=== PATIENT | male | born 1955 | race Caucasian/White ===

== ENCOUNTER 2018-03-07 21:32 | Emergency (ER) | payer MEDICAID ==
[~2018-03-07] VITALS: Ht 175.3 cm; Wt 120.0 kg
[~2018-03-07 21:32] MED LIST: HCTZ; LISI-604 PO; NIAC1CAP PO; ZES10T PO
[2018-03-07] MEDS ORDERED: CLIN-100 PO (23:44)
[2018-03-07] MEDS ORDERED: ANBESOL TP (23:44)
[2018-03-07] MEDS ORDERED: TRAM50TA2 PO (23:44)
[2018-03-07] MEDS ORDERED: IBUP-1986 PO (23:44)
[2018-03-08] MEDS ORDERED: ibuprofen tablet 400 MG TABLET PO ONE (00:15)
[2018-03-08 00:25] VITALS: BP 161/100
== END 2018-03-08 00:12 | disposition home or self-care (01) ==
LOC: ER 21:33
DX: K04.7 Periapical abscess without sinus (principal); K05.10 Chronic gingivitis, plaque induced; F15.10 Other stimulant abuse, uncomplicated; I10 Essential (primary) hypertension; Z79.899 Other long term (current) drug therapy
CPT/HCPCS: 99283

== ENCOUNTER 2022-08-16 18:32 | Emergency (ER) | payer BC, MEDICAID ==
[~2022-08-16] VITALS: Ht 177.8 cm; Wt 127.3 kg
[~2022-08-16 18:32] MED LIST changes: +IBUP-1986 PO; -LISI-604 PO; +LISI5TAB22 PO
[2022-08-16 18:53] VITALS: BP 174/95
[2022-08-16] MEDS ORDERED: HYDROcodone/acetaminophen 5mg/325mg tablet PO ONE (21:45)
[2022-08-16] MEDS ORDERED: clindamycin 150mg capsule PO ONE (21:45)
[2022-08-16] MEDS ORDERED: CLIN150C8 PO (21:52)
[2022-08-16] MEDS ORDERED: HYDR-3965 PO (21:52)
== END 2022-08-16 22:09 | disposition home or self-care (01) ==
LOC: ER 18:33
DX: K04.7 Periapical abscess without sinus (principal); K08.89 Other specified disorders of teeth and supporting structures; I10 Essential (primary) hypertension; F15.90 Other stimulant use, unspecified, uncomplicated; Z98.890 Other specified postprocedural states; Z88.0 Allergy status to penicillin; Z79.2 Long term (current) use of antibiotics; Z79.899 Other long term (current) drug therapy
CPT/HCPCS: 99283

== ENCOUNTER 2022-08-17 16:47 | Emergency (ER) | payer BC, MEDICAID ==
[~2022-08-17] VITALS: Ht 177.8 cm; Wt 127.3 kg
[~2022-08-17 16:47] MED LIST changes: +CLIN150C8 PO; +HYDR-3965 PO
[2022-08-17 17:02] VITALS: BP 183/118
== END 2022-08-17 19:14 | disposition left against medical advice (07) ==
LOC: ER 16:48
DX: Z76.0 Encounter for issue of repeat prescription (principal); Z53.21 Procedure and treatment not carried out due to patient leaving prior to being seen by health care provider

== ENCOUNTER 2023-06-24 15:18 | Emergency (ER) | payer BC, MEDICAID ==
[~2023-06-24] VITALS: Ht 177.8 cm; Wt 121.0 kg
[~2023-06-24 15:18] MED LIST changes: +CLIN-214 PO; -CLIN150C8 PO; -HYDR-3965 PO
[2023-06-24 15:35] VITALS: BP_DIAS 95
[2023-06-24] MEDS ORDERED: CLINDAmcin 900mg/NS 50ml IVPB 50 ML IV ONE (16:35)
[2023-06-24] MEDS ORDERED: clindamycin-Cleocin 900mg/D5W 50 ML IV ONE (16:39)
[2023-06-24] MEDS ORDERED: iohexol 300mg/ml 100ml inj. ONE (17:14)
[2023-06-24 17:53] VITALS: BP_SYST 160; PULSE 65; RESP 18; TEMP 98.7; O2SAT 96
[2023-06-24 17:58] LABS: BASOPHILS # (AUTO) 0.1 X10'3 (0-0.2); BASOPHILS % (AUTO) 0.9 % (0-1); EOSINOPHILS # (AUTO) 0.5 X10'3 (0-0.9); EOSINOPHILS % (AUTO) 5.9 % (0-6); HEMATOCRIT 46.9 % (42.0-52.0); HEMOGLOBIN 15.5 g/dl (14.0-17.9); LYMPHOCYTES # (AUTO) 2.1 X10'3 (1.1-4.8); LYMPHOCYTES % (AUTO) 23.2 % (21-51); MEAN CORPUSCULAR HEMOGLOBIN 28.8 PG (27.0-31.0); MEAN CORPUSCULAR VOLUME 87.1 FL (78-98); MEAN PLATELET VOLUME 8.1 FL (7.4-10.4); MONOCYTES # (AUTO) 1.2 X10'3 (0-0.9); MONOCYTES % (AUTO) 13.4 % (2-12); NEUTROPHILS # (AUTO) 5.1 X10'3 (1.8-7.7); NEUTROPHILS % (AUTO) 56.6 % (42-75); PLATELET COUNT 223 X10'3 (140-440); RED BLOOD COUNT 5.38 X10'6 (4.70-6.10); RED CELL DISTRIBUTION WIDTH 15.8 % (11.5-14.5); WHITE BLOOD COUNT 8.9 X10'3 (4.5-11.0)
[2023-06-24 18:13] LABS: ALANINE AMINOTRANSFERASE 34 U/L (12-78); ALBUMIN 3.5 G/DL (3.4-5.0); ALBUMIN/GLOBULIN RATIO 0.8 (1.1-1.5); ALKALINE PHOSPHATASE 72 IU/L (46-116); ANION GAP 6 (8-16); ASPARTATE AMINO TRANSFERASE 25 U/L (10-37); BILIRUBIN,TOTAL 1.1 MG/DL (0.1-1.0); BLOOD UREA NITROGEN 17 MG/DL (7-18); BUN/CREATININE RATIO 13.9 (10.0-20.0); CALCIUM 9.9 MG/DL (8.5-10.1); CHLORIDE 104 MMOL/L (99-107); CREATININE 1.22 MG/DL (0.60-1.10); GLUCOSE 126 MG/DL (70-104); LIPASE 107 U/L (73-393); POTASSIUM 3.7 MMOL/L (3.5-5.1); SODIUM 139 MMOL/L (135-145); TOTAL CARBON DIOXIDE 29.5 MMOL/L (24-32); TOTAL PROTEIN 7.7 G/DL (6.4-8.2); eCRCL 62 ML/MIN; eGFR 60 ML/MIN
[2023-06-24] MEDS ORDERED: OXYC-145 PO (19:52)
[2023-06-24] MEDS ORDERED: CLIN150C2 PO (19:52)
== END 2023-06-24 20:09 | disposition home or self-care (01) ==
LOC: ER 15:19
DX: K04.7 Periapical abscess without sinus (principal); K08.89 Other specified disorders of teeth and supporting structures; I10 Essential (primary) hypertension; F15.90 Other stimulant use, unspecified, uncomplicated; Z88.0 Allergy status to penicillin; Z79.2 Long term (current) use of antibiotics; Z79.1 Long term (current) use of non-steroidal anti-inflammatories (NSAID)
CPT/HCPCS: 36415; 70491; 80053; 83690; 85025; 96365; 99285; J3490; Q9967

== ENCOUNTER 2023-08-17 17:28 | Emergency (ER) | payer BC, MEDICAID ==
[~2023-08-17] VITALS: Ht 177.8 cm; Wt 127.3 kg
[~2023-08-17 17:28] MED LIST changes: +MOUT1KIT2; +OXYC-145 PO
[2023-08-17 17:30] VITALS: BP 175/102; PULSE 75; RESP 20; TEMP 97.9; O2SAT 97
[2023-08-17] MEDS ORDERED: CLIN-97 PO (19:29)
== END 2023-08-17 19:41 | disposition home or self-care (01) ==
LOC: ER 17:29
DX: K08.89 Other specified disorders of teeth and supporting structures (principal); I10 Essential (primary) hypertension; F15.90 Other stimulant use, unspecified, uncomplicated; Z98.890 Other specified postprocedural states; Z88.0 Allergy status to penicillin; Z88.8 Allergy status to other drugs, medicaments and biological substances; Z79.2 Long term (current) use of antibiotics; Z79.899 Other long term (current) drug therapy
CPT/HCPCS: 99283

== ENCOUNTER 2025-01-17 22:24 | Inpatient (IN) | payer BC, MEDICAID ==
[~2025-01-17] VITALS: Ht 177.8 cm; Wt 134.7 kg
[~2025-01-17 22:24] MED LIST changes: +CLIN-97 PO
[2025-01-18] VITALS (30 sets, daily range): BP systolic 105–177; BP diastolic 72–117; PULSE 73–157; RESP 16–22; TEMP 97.3–98.2; O2SAT 94–97
[2025-01-18 01:17] LABS: BASOPHILS # (AUTO) 0.1 X10'3 (0-0.2); BASOPHILS % (AUTO) 0.9 % (0-1); EOSINOPHILS # (AUTO) 0.5 X10'3 (0-0.9); EOSINOPHILS % (AUTO) 4.9 % (0-6); HEMATOCRIT 36.6 % (42.0-52.0); HEMOGLOBIN 11.8 g/dl (14.0-17.9); LYMPHOCYTES # (AUTO) 2.5 X10'3 (1.1-4.8); LYMPHOCYTES % (AUTO) 26.4 % (21-51); MEAN CORPUSCULAR HEMOGLOBIN 26.5 PG (27.0-31.0); MEAN CORPUSCULAR HGB CONC 32.3 g/dL (33.0-36.5); MEAN PLATELET VOLUME 8.1 FL (7.4-10.4); MONOCYTES # (AUTO) 1.1 X10'3 (0-0.9); MONOCYTES % (AUTO) 11.8 % (2-12); NEUTROPHILS # (AUTO) 5.3 X10'3 (1.8-7.7); PLATELET COUNT 251 X10'3 (140-440); RED BLOOD COUNT 4.46 X10'6 (4.70-6.10); RED CELL DISTRIBUTION WIDTH 16.4 % (11.5-14.5); WHITE BLOOD COUNT 9.4 X10'3 (4.5-11.0)
[2025-01-18 01:31] LABS: INR 1.3 INR
[2025-01-18 01:32] LABS: ALANINE AMINOTRANSFERASE 38 U/L (12-78); ALBUMIN 3.2 G/DL (3.4-5.0); ALBUMIN/GLOBULIN RATIO 0.9 (1.1-1.5); ALKALINE PHOSPHATASE 85 IU/L (46-116); ANION GAP 7 (8-16); APTT 29 SECONDS (22-32); ASPARTATE AMINO TRANSFERASE 33 U/L (10-37); BILIRUBIN,TOTAL 2.1 MG/DL (0.1-1.0); BLOOD UREA NITROGEN 13 MG/DL (7-18); BUN/CREATININE RATIO 11.2 (10.0-20.0); CALCIUM 8.6 MG/DL (8.5-10.1); CHLORIDE 105 MMOL/L (99-107); CREATININE 1.16 MG/DL (0.60-1.10); GLUCOSE 114 MG/DL (70-104); POTASSIUM 3.4 MMOL/L (3.5-5.1); PROTHROMBIN TIME 13.7 SECONDS (9.0-12.0); SODIUM 142 MMOL/L (135-145); TOTAL CARBON DIOXIDE 29.9 MMOL/L (24-32); TOTAL PROTEIN 6.9 G/DL (6.4-8.2); eCRCL 64 ML/MIN; eGFR 63 ML/MIN
[2025-01-18 01:41] LABS: BILIRUBIN,DIRECT 0.5 MG/DL (0-0.3); ETHANOL < 10 MG/DL (<10); MAGNESIUM 2.1 MG/DL (1.5-2.4); PRO BRAIN NATRIURETIC PEPTIDE 2217 PG/ML (0-125)
[2025-01-18 01:42] LABS: BILIRUBIN,URINE NEGATIVE (Neg); CLARITY,URINE CLEAR (Clear); COLOR,URINE YELLOW (Yellow); GLUCOSE, URINE NEGATIVE (Neg); KETONES,URINE NEGATIVE (Neg); LEUKOCYTE ESTERASE ,URINE NEGATIVE (Neg); NITRITES, URINE NEGATIVE (Neg); OCCULT BLOOD,URINE NEGATIVE (Neg); PROTEIN,URINE >=300 mg/dl (Neg)
[2025-01-18 01:51] LABS: UA COLLECTION TYPE CLN CATCH MIDSTREAM
[2025-01-18 01:52] LABS: BACTERIA,URINE 1+ /HPF (Neg); MUCUS STRANDS MODERATE /LPF (Neg); RBC,URINE NONE SEEN /HPF (0-2); SQUAMOUS EPITHELIAL CELL,UR FEW /LPF (FEW); WBC,URINE 0-4 /HPF (0-4)
[2025-01-18] MEDS ORDERED: morphine 2 MG/ML inj. syringe IV PRN (01:55)
[2025-01-18] MEDS: aspirin 81mg tab.chew PO ONE (02:39)
[2025-01-18] MEDS: potassium Cl 20 mEq SR tablet PO ONE (02:40)
[2025-01-18] MEDS: enoxaparin 100mg/ml syringe SUBCUT ONE (02:40)
[2025-01-18] MEDS: D5-1/2NS w/20 mEq potassium per 1000ml IV ONE (02:41)
[2025-01-18] MEDS ORDERED: NO HOME MEDS (02:50)
[2025-01-18] MEDS: IOHEXOL 12MG/ML oral solution 1,000 ML BOTTLE-COMPOUND-RX PO ONE (03:07)
[2025-01-18 04:07] LABS: URINE AMPHETAMINE SCREEN POSITIVE (Neg); URINE BARBITUATE SCREEN NEGATIVE (Neg); URINE BENZODIAZEPINES SCREEN NEGATIVE (Neg); URINE CANNABINOID SCREEN NEGATIVE (Neg); URINE COCAINE SCREEN NEGATIVE (Neg); URINE METHADONE SCREEN NEGATIVE (Neg); URINE OPIATE SCREEN NEGATIVE (Neg); URINE PHENCYCLIDINE SCREEN NEGATIVE (Neg)
[2025-01-18] MEDS ORDERED: iohexol 300mg/ml 100ml inj. ONE (04:12)
[2025-01-18] MEDS ORDERED: magnesium sulf-water 4G/100mL 100 ML IV PRN (06:35)
[2025-01-18] MEDS ORDERED: potassium Cl 20 mEq SR tablet PO PRN (06:35)
[2025-01-18] MEDS ORDERED: magnesium sulf-water 2g/50mL 50 ML IV PRN (06:35)
[2025-01-18] MEDS ORDERED: magnesium Cl slow-release 64mg tablet PO PRN (06:35)
[2025-01-18] MEDS ORDERED: potassium Cl 40MEQ/1/2NS 520ml 520 ML IV PRN (06:35)
[2025-01-18] MEDS ORDERED: metoprolol tartrate 1mg/ml inj IV PRN (06:45)
[2025-01-18] MEDS ORDERED: nitroGLYCERIN 0.4mg SUBLingual tab SL PRN (06:45)
[2025-01-18] MEDS: K and/or MAG REPLACEMENT MC SCH (08:00)
[2025-01-18] MEDS: heparin, porcine 5000 units/ml vial SQ SCH (08:00)
[2025-01-18] MEDS: carVEDilol 3.125mg tablet PO SCH (08:00)
[2025-01-18] MEDS: aspirin 81mg tab.chew PO SCH (08:30)
[2025-01-18] MEDS: ipratropium/albuterol 3ml nebule NEB PRN (09:15)
[2025-01-18] MEDS: guaiFENesin ER 600mg tablet PO SCH (09:30)
[2025-01-18 11:27] LABS: THYROID STIMULATING HORMONE 1.31 ulU/ml (0.34-4.50)
[2025-01-18 11:38] LABS: HEMOGLOBIN A1C 6.5 % (4.5-6.2)
[2025-01-18] MEDS: regadenoson 0.4mg/5ml syringe IV PRN (12:12)
[2025-01-18] MEDS: aminophylline 500mg/20ml vial IV PRN (12:34)
[2025-01-18] MEDS: adenosine 3mg/ml 2ml vial IV ONE ×2 (12:40→17:12)
[2025-01-18] MEDS ORDERED: morphine 4 MG/ML inj SYRINge IV PRN (14:15)
[2025-01-18] MEDS: potassium Cl 20 mEq SR tablet PO PRN (15:57)
[2025-01-18] MEDS: metoprolol tartrate 1mg/ml inj IV ONE (16:50)
[2025-01-18] MEDS: carvedilol 6.25mg tablet PO SCH (16:56)
[2025-01-18 17:32] LABS: CHOL/HDL RATIO 3.7 (0.00-4.99); CHOLESTEROL 100 MG/DL (0-200); HDL CHOLESTEROL 27 MG/DL (35-60); LDL CHOLESTEROL 68 MG/DL (50-100); TRIGLYCERIDES 60 MG/DL (20-135)
[2025-01-18] MEDS: losartan 25mg tablet PO SCH (18:06)
[2025-01-18] MEDS: carVEDilol 12.5mg tablet PO ONE (20:27)
[2025-01-18] MEDS: atorvastatin 20mg tablet PO SCH (20:27)
[2025-01-18] MEDS: polyethylene glycol 3350 17gm powd pack PO SCH (20:28)
[2025-01-18] MEDS: nystatin 15 GM powder TP SCH (21:00)
[2025-01-18] MEDS: furosemide 20 MG/2 ML vial IV SCH (21:57)
[2025-01-18] MEDS: spironolactone 25 MG tablet PO SCH (22:09)
[2025-01-19] VITALS (10 sets, daily range): BP systolic 98–130; BP diastolic 58–87; PULSE 59–74; RESP 14–21; TEMP 97.1–97.9; O2SAT 94–100
[2025-01-19] MEDS ORDERED: guaiFENesin 200 MG/10 ML oral syrup UD cup PO PRN (02:50)
[2025-01-19] MEDS: carVEDilol 12.5mg tablet PO SCH (08:37)
[2025-01-19] MEDS: EMPAGLIFLOZIN 10 MG TABLET PO SCH (08:45)
[2025-01-19 09:33] LABS: BASOPHILS # (AUTO) 0.1 X10'3 (0-0.2); EOSINOPHILS # (AUTO) 0.6 X10'3 (0-0.9); EOSINOPHILS % (AUTO) 7.5 % (0-6); HEMATOCRIT 36.8 % (42.0-52.0); HEMOGLOBIN 11.6 g/dl (14.0-17.9); LYMPHOCYTES # (AUTO) 1.6 X10'3 (1.1-4.8); LYMPHOCYTES % (AUTO) 21.6 % (21-51); MEAN CORPUSCULAR HEMOGLOBIN 26.5 PG (27.0-31.0); MEAN CORPUSCULAR HGB CONC 31.6 g/dL (33.0-36.5); MEAN CORPUSCULAR VOLUME 83.9 FL (78-98); MEAN PLATELET VOLUME 8.5 FL (7.4-10.4); MONOCYTES # (AUTO) 0.7 X10'3 (0-0.9); MONOCYTES % (AUTO) 9.3 % (2-12); NEUTROPHILS # (AUTO) 4.5 X10'3 (1.8-7.7); NEUTROPHILS % (AUTO) 60.6 % (42-75); PLATELET COUNT 244 X10'3 (140-440); RED BLOOD COUNT 4.39 X10'6 (4.70-6.10); RED CELL DISTRIBUTION WIDTH 16.5 % (11.5-14.5); WHITE BLOOD COUNT 7.4 X10'3 (4.5-11.0)
[2025-01-19 09:45] LABS: APTT 29 SECONDS (22-32); INR 1.3 INR
[2025-01-19 09:55] LABS: PROTHROMBIN TIME 12.9 SECONDS (9.0-12.0)
[2025-01-19 10:09] LABS: ALANINE AMINOTRANSFERASE 30 U/L (12-78); ALBUMIN 2.9 G/DL (3.4-5.0); ALBUMIN/GLOBULIN RATIO 0.7 (1.1-1.5); ALKALINE PHOSPHATASE 79 IU/L (46-116); ANION GAP 7 (8-16); ASPARTATE AMINO TRANSFERASE 28 U/L (10-37); BILIRUBIN,TOTAL 2.2 MG/DL (0.1-1.0); BLOOD UREA NITROGEN 14 MG/DL (7-18); BUN/CREATININE RATIO 12.5 (10.0-20.0); CALCIUM 8.8 MG/DL (8.5-10.1); CHLORIDE 106 MMOL/L (99-107); CHOL/HDL RATIO 3.5 (0.00-4.99); CHOLESTEROL 98 MG/DL (0-200); CREATININE 1.12 MG/DL (0.60-1.10); GLUCOSE 174 MG/DL (70-104); HDL CHOLESTEROL 28 MG/DL (35-60); LDL CHOLESTEROL 67 MG/DL (50-100); PHOSPHORUS 2.8 MG/DL (2.3-4.5); SODIUM 140 MMOL/L (135-145); TOTAL CARBON DIOXIDE 26.6 MMOL/L (24-32); TOTAL PROTEIN 7.2 G/DL (6.4-8.2); TRIGLYCERIDES 74 MG/DL (20-135); eCRCL 66 ML/MIN; eGFR 65 ML/MIN
[2025-01-19] MEDS: apixaban 5mg tablet PO SCH (12:33)
[2025-01-20 02:00] VITALS: BP 112/66; PULSE 71; RESP 17; TEMP 97.3; O2SAT 97
[2025-01-20 06:53] LABS: BASOPHILS # (AUTO) 0.1 X10'3 (0-0.2); BASOPHILS % (AUTO) 1.2 % (0-1); EOSINOPHILS # (AUTO) 0.7 X10'3 (0-0.9); EOSINOPHILS % (AUTO) 7.8 % (0-6); HEMATOCRIT 40.3 % (42.0-52.0); HEMOGLOBIN 12.5 g/dl (14.0-17.9); LYMPHOCYTES # (AUTO) 2.4 X10'3 (1.1-4.8); LYMPHOCYTES % (AUTO) 26.3 % (21-51); MEAN CORPUSCULAR HGB CONC 31.2 g/dL (33.0-36.5); MEAN CORPUSCULAR VOLUME 83.3 FL (78-98); MONOCYTES # (AUTO) 1.1 X10'3 (0-0.9); MONOCYTES % (AUTO) 12.1 % (2-12); NEUTROPHILS # (AUTO) 4.8 X10'3 (1.8-7.7); NEUTROPHILS % (AUTO) 52.6 % (42-75); PLATELET COUNT 273 X10'3 (140-440); RED BLOOD COUNT 4.83 X10'6 (4.70-6.10); RED CELL DISTRIBUTION WIDTH 16.8 % (11.5-14.5); WHITE BLOOD COUNT 9.1 X10'3 (4.5-11.0)
[2025-01-20 07:00] VITALS: BP 130/92; PULSE 61; RESP 16; TEMP 97.8; O2SAT 97
[2025-01-20 07:02] LABS: APTT 28 SECONDS (22-32); INR 1.2 INR; PROTHROMBIN TIME 12.5 SECONDS (9.0-12.0)
[2025-01-20 07:27] LABS: ALANINE AMINOTRANSFERASE 34 U/L (12-78); ALBUMIN 3.2 G/DL (3.4-5.0); ALBUMIN/GLOBULIN RATIO 0.7 (1.1-1.5); ALKALINE PHOSPHATASE 81 IU/L (46-116); ANION GAP 7 (8-16); ASPARTATE AMINO TRANSFERASE 24 U/L (10-37); BILIRUBIN,TOTAL 1.4 MG/DL (0.1-1.0); BLOOD UREA NITROGEN 18 MG/DL (7-18); BUN/CREATININE RATIO 16.1 (10.0-20.0); CALCIUM 9.4 MG/DL (8.5-10.1); CHLORIDE 104 MMOL/L (99-107); CREATININE 1.12 MG/DL (0.60-1.10); GLUCOSE 107 MG/DL (70-104); MAGNESIUM 2.2 MG/DL (1.5-2.4); PHOSPHORUS 4.7 MG/DL (2.3-4.5); POTASSIUM 4.2 MMOL/L (3.5-5.1); SODIUM 141 MMOL/L (135-145); TOTAL CARBON DIOXIDE 30.5 MMOL/L (24-32); TOTAL PROTEIN 7.8 G/DL (6.4-8.2); eCRCL 66 ML/MIN; eGFR 65 ML/MIN
[2025-01-20 08:00] VITALS: RESP 16; O2SAT 95
[2025-01-20] MEDS ORDERED: CARV-50 PO (08:54)
[2025-01-20] MEDS ORDERED: EMPA10TA PO (08:54)
[2025-01-20] MEDS ORDERED: APIX5TAB3 PO (08:54)
[2025-01-20 11:00] VITALS: BP 126/88; PULSE 56; RESP 16; TEMP 97.5; O2SAT 93
[2025-01-20 15:00] VITALS: BP 118/81; PULSE 65; RESP 16; TEMP 97.7; O2SAT 100
[2025-01-21] MEDS ORDERED: EMPA10TA PO (10:39)
[2025-01-21] MEDS ORDERED: APIX5TAB3 PO (10:39)
[2025-01-21] MEDS ORDERED: CARV-50 PO (10:39)
[2025-01-21] MEDS ORDERED: FURO-150 PO (10:39)
[2025-01-21] MEDS ORDERED: POTA-207 PO (10:39)
== END 2025-01-20 15:47 | disposition home or self-care (01) | DRG 280 ==
LOC: ER 22:24 → ED HOLD 01-18 06:38 → PCU 3S 01-18 15:31
PROVIDERS: ADMIT Internal Medicine Critical Care Medicine; ATTEND Internal Medicine
PROC: 4A02XM4 Measurement of Cardiac Total Activity, External Approach (ICD-10-PCS; principal; 2025-01-18)
PROC: 3E033HZ Introduction of Radioactive Substance into Peripheral Vein, Percutaneous Approach (ICD-10-PCS; 2025-01-18)
PROC: BW211ZZ Computerized Tomography (CT Scan) of Abdomen and Pelvis using Low Osmolar Contrast (ICD-10-PCS; 2025-01-18)
DX: I21.4 Non-ST elevation (NSTEMI) myocardial infarction (principal); J69.0 Pneumonitis due to inhalation of food and vomit; N17.9 Acute kidney failure, unspecified; I50.22 Chronic systolic (congestive) heart failure; Z68.41 Body mass index [BMI] 40.0-44.9, adult; I42.7 Cardiomyopathy due to drug and external agent; I47.19 Other supraventricular tachycardia; K42.9 Umbilical hernia without obstruction or gangrene; K40.90 Unilateral inguinal hernia, without obstruction or gangrene, not specified as recurrent; F15.10 Other stimulant abuse, uncomplicated; E66.01 Morbid (severe) obesity due to excess calories; I11.0 Hypertensive heart disease with heart failure; Z88.0 Allergy status to penicillin; Z79.899 Other long term (current) drug therapy; Z88.5 Allergy status to narcotic agent
CPT/HCPCS: 36415; 71045; 74018; 74177; 78452; 80048; 80053; 80061; 80076; 80305; 80320; 81001; 83036; 83735; 83880; 84100; 84443; 84484; 85025; 85610; 85730; 87081; 93005; 93017; 93306; 94640; 94760; 96361; 96372; 96374; 96375; 99285; A9500; G0378; J0280; J1644; J1650; J1940; J2785; J3480; J3490; Q9967

== ENCOUNTER 2025-01-21 08:59 | Emergency (ER) | payer BC, MEDICAID ==
[~2025-01-21] VITALS: Ht 177.8 cm; Wt 137.0 kg
[~2025-01-21 08:59] MED LIST changes: +APIX5TAB3 PO; +CARV-50 PO; -CLIN-214 PO; -CLIN-97 PO; +EMPA10TA PO; -LISI5TAB22 PO; +NO HOME MEDS
[2025-01-21 09:49] LABS: ALANINE AMINOTRANSFERASE 31 U/L (12-78); ALBUMIN/GLOBULIN RATIO 0.7 (1.1-1.5); ALKALINE PHOSPHATASE 75 IU/L (46-116); ANION GAP 4 (8-16); BILIRUBIN,TOTAL 1.3 MG/DL (0.1-1.0); BLOOD UREA NITROGEN 19 MG/DL (7-18); CALCIUM 9.1 MG/DL (8.5-10.1); CHLORIDE 106 MMOL/L (99-107); GLUCOSE 103 MG/DL (70-104); SODIUM 140 MMOL/L (135-145); TOTAL CARBON DIOXIDE 30.3 MMOL/L (24-32); TOTAL PROTEIN 7.3 G/DL (6.4-8.2); eCRCL 74 ML/MIN; eGFR 75 ML/MIN
[2025-01-21 09:53] LABS: BASOPHILS # (AUTO) 0.1 X10'3 (0-0.2); EOSINOPHILS # (AUTO) 0.7 X10'3 (0-0.9); WHITE BLOOD COUNT 9.9 X10'3 (4.5-11.0)
[2025-01-21 09:54] LABS: BASOPHILS % (AUTO) 1.1 % (0-1); HEMATOCRIT 37.9 % (42.0-52.0); HEMOGLOBIN 12.3 g/dl (14.0-17.9); LYMPHOCYTES # (AUTO) 2.2 X10'3 (1.1-4.8); LYMPHOCYTES % (AUTO) 22.6 % (21-51); MEAN CORPUSCULAR HEMOGLOBIN 26.8 PG (27.0-31.0); MEAN CORPUSCULAR HGB CONC 32.5 g/dL (33.0-36.5); MEAN CORPUSCULAR VOLUME 82.4 FL (78-98); MEAN PLATELET VOLUME 9.3 FL (7.4-10.4); MONOCYTES # (AUTO) 1.2 X10'3 (0-0.9); MONOCYTES % (AUTO) 12.4 % (2-12); NEUTROPHILS # (AUTO) 5.6 X10'3 (1.8-7.7); NEUTROPHILS % (AUTO) 56.9 % (42-75); PLATELET COUNT 269 X10'3 (140-440); RED CELL DISTRIBUTION WIDTH 16.5 % (11.5-14.5)
[2025-01-21 10:00] LABS: PRO BRAIN NATRIURETIC PEPTIDE 1952 PG/ML (0-125)
[2025-01-21 10:07] LABS: ASPARTATE AMINO TRANSFERASE 45 U/L (10-37); POTASSIUM 4.6 MMOL/L (3.5-5.1)
[2025-01-21] MEDS ORDERED: APIX5TAB3 PO (10:39)
[2025-01-21] MEDS ORDERED: POTA-207 PO (10:39)
[2025-01-21] MEDS ORDERED: CARV-50 PO (10:39)
[2025-01-21] MEDS ORDERED: FURO-150 PO (10:39)
[2025-01-21] MEDS ORDERED: EMPA10TA PO (10:39)
[2025-01-21] MEDS: furosemide 20MG tablet PO ONE (11:06)
[2025-01-21 12:35] VITALS: TEMP 98.1
[2025-01-21 13:47] VITALS: BP 145/100; PULSE 66; RESP 15; O2SAT 96
== END 2025-01-21 13:54 | disposition home or self-care (01) ==
LOC: ER 09:00
DX: I11.0 Hypertensive heart disease with heart failure (principal); I50.9 Heart failure, unspecified; Z88.0 Allergy status to penicillin; Z88.5 Allergy status to narcotic agent
CPT/HCPCS: 36415; 71045; 80053; 83880; 84484; 85025; 93005; 99285